=== PATIENT | female | born 1935 | race Caucasian/White ===

== ENCOUNTER 2018-09-26 12:51 | Inpatient (IN) | payer OTHER ==
[2018-09-26] MEDS ORDERED: FENTANYL CITR 100 MCG/2 ML ONE (13:39)
[2018-09-26 13:57] LABS: Absolute Lymphocytes (CBC) 1.1 K/uL (0.7-4.9); Absolute Monocytes 0.8 K/uL (0.1-1.3); Absolute Neutrophil 6.9 K/uL (1.8-8.0); Basophils % 0.9 % (0-1.3); Hematocrit 35.3 % (36.0-45.0); Lymphocytes % 12.7 % (15.3-44.8); MCH 24.7 pg (27.0-35.0); MPV 9.2 fL (7.6-11.3); Monocytes % 8.6 % (3.3-12.3); RBC Red Blood Cell Count 4.64 M/uL (3.86-4.86)
[2018-09-26 14:00] LABS: Protime INR 1.03
[2018-09-26 14:11] LABS: Albumin 3.4 g/dL (3.4-5.0); Bilirubin Direct 0.1 mg/dL (0-0.2); Bilirubin Total 0.4 mg/dL (0.2-1.0); Potassium 4.2 mmol/L (3.5-5.1); Protein, Total 6.9 g/dL (6.4-8.2)
[2018-09-26 14:12] LABS: Troponin (Emerg Dept Use Only) 3.89 ng/mL (0.0-0.045)
--- NOTE | 2018-09-26 14:50 | ER ---
Nurse's Notes [facility] Name: Norma Best Age: 83 yrs Sex: Female : 1935 Arrival Date: 09/26/2018 Time: 13:00 Bed 25 Private MD: Diagnosis: Non-ST elevation (NSTEMI) myocardial infarction Presentation: 09/26 13:06 Presenting complaint: Patient states: She started having tightness in her chest and aj1 shortness of breath this morning at 0615, the pain wasn't getting any better so she called EMS at noon. Albuterol and atrovent neb given by EMS, 324 mg ASA given by EMS. Breath sounds with crackles to bilateral bases. Reports improvement in SOB with rest and elevating her head. Transition of care: patient was not received from another setting of care. Onset of symptoms was September 26, 2018 at 06:15. Risk Assessment: Do you want to hurt yourself or someone else? Patient reports no desire to harm self or others. Initial Sepsis Screen: Does the patient meet any 2 criteria? RR > 20 per min. HR > 90 bpm. Yes Does the patient have a suspected source of infection? No. Patient's initial sepsis screen is negative. Care prior to arrival: None. 13:06 Method Of Arrival: EMS: [facility] aj 13:06 Acuity: ROCCO 3 aj1 Triage Assessment: 13:11 General: Appears in no apparent distress. uncomfortable, Behavior is calm, cooperative, aj1 appropriate for age. Pain: Complains of pain in diaphragm, right breast and left breast. Historical: - Allergies: 13:11 IV contrast; aj1 - Home Meds: 15:43 amlodipine 10 mg tab [Active]; metoptolol succinate ER 50 mg daily [Active]; iw allopurinol 300 mg Oral tab 1 tab once daily [Active]; clopidogrel 75 mg Oral tab 1 tab once daily [Active]; venlafaxine 75 mg Oral tr24 1 tab once daily [Active]; Omeprazole Oral [Active]; - PMHx: 13:11 CVA; Gout; Hypertension; Myocardial infarction; cardiac stent x2; aj1 - Immunization history:: Flu vaccine is not up to date. - Social history:: Smoking status: Patient/guardian denies using tobacco. - Ebola Screening: : Patient denies travel to an Ebola-affected area in the 21 days before illness onset. Screenin:13 Abuse screen: Denies threats or abuse. Denies injuries from another. Nutritional aj1 screening: No deficits noted. Tuberculosis screening: No symptoms or risk factors identified. 17:29 Fall Risk No fall in past 12 months (0 pts). Secondary diagnosis (15 points) impaired aj1 mobility, IV access (20 points). Ambulatory Aid- None/Bed Rest/Nurse Assist (0 pts). Gait- Weak (10 pts.). Mental Status- Overestimates/Forgets Limitations (15 pts.). Total Med[place] Fall Scale indicates High Risk Score (45 or more points). Family Present and informed to notify staff if the need to leave the bedside As available patient and family educated on Fall Prevention Program and Strategies. Assessment: 13:13 General: Appears in no apparent distress. uncomfortable, Behavior is calm, cooperative, aj1 appropriate for age. General: Reports fatigue for 0-12 hours. Pain: Complains of pain in left breast and right breast and diaphragm Pain does not radiate. Pain currently is 2 out of 10 on a pain scale. Quality of pain is described as heavy, pressure, Pain began 0615 this morning Is continuous, Alleviated by rest, sitting upright Aggravated by increased activity. Neuro: Level of Consciousness is awake, alert, obeys commands, Oriented to person, place, time, situation, Speech is normal, Facial symmetry appears normal. Cardiovascular: Reports chest pain, shortness of breath, Heart tones S1 S2 present Patient's skin is warm and dry. Rhythm is atrial fibrillation. Respiratory: Reports shortness of breath on exertion Airway is patent Respiratory effort is even, unlabored, Respiratory pattern is regular, symmetrical, Breath sounds with crackles bilaterally. the patient has mild shortness of breath. GI: No signs and/or symptoms were reported involving the gastrointestinal system. : No signs and/or symptoms were reported regarding the genitourinary system. EENT: No signs and/or symptoms were reported regarding the EENT system. Derm: No signs and/or symptoms reported regarding the dermatologic system. Skin is pink, warm \T\ dry. normal. Musculoskeletal: No signs and/or symptoms reported regarding the musculoskeletal system. Circulation, motion, and sensation intact. 14:15 Reassessment: Patient appears in no apparent distress at this time. No changes from aj1 previously documented assessment. Patient and/or family updated on plan of care and expected duration. Pain level reassessed. Patient is alert, oriented x 3, equal unlabored respirations, skin warm/dry/pink. Vital Signs: 13:11 BP 124 / 75; Pulse 92; Resp 24; Temp 97.8(O); Pulse Ox 88% on R/A; Weight 90.72 kg (R); aj1 Height 5 ft. 0 in. (152.40 cm) (R); Pain 2/10; 13:12 Resp 18; Pulse Ox 95% on 3 lpm NC; aj1 14:15 BP 127 / 61; Pulse 91; Resp 18; Pulse Ox 94% on 3 lpm NC; aj1 15:15 BP 108 / 66; Pulse 94; Resp 18; Pulse Ox 95% on 3 lpm NC; aj1 17:07 BP 115 / 75; Pulse 75; Resp 23; Pulse Ox 94% on 3 lpm NC; aj1 13:11 Body Mass Index 39.06 (90.72 kg, 152.40 cm) [facility] ED Course: 13:00 Patient arrived in ED. bd 13:01 Darien Patricio MD is Attending Physician. gs 13:06 Argenis Cullen, KAYLIE is Primary Nurse. aj1 13:10 Triage completed. aj1 13:12 Arm band placed on Patient placed in an exam room. aj1 13:13 Patient has correct armband on for positive identification. Bed in low position. Call aj1 light in reach. Side rails up X 1. lunchroom monitor on. Pulse ox on. NIBP on. 13:13 No provider procedures requiring assistance completed. Maintain EMS IV. Dressing aj1 intact. Good blood return noted. Site clean \T\ dry. Gauge \T\ site: 20g left AC. 13:29 Troponin (emerg Dept Use Only) Sent. ds4 13:29 PT-INR Sent. ds4 13:29 NT PRO-BNP Sent. ds4 13:29 Magnesium Sent. ds4 13:29 LFT's Sent. ds4 13:29 CBC with Diff Sent. ds4 13:29 Basic Metabolic Panel Sent. ds4 13:50 Oxygen administration via nasal cannula \T\ 4L/min Response to oxygen therapy: symptoms ds4 improved. 13:52 Basic Metabolic Panel Sent. ds4 13:52 Troponin (emerg Dept Use Only) Sent. ds4 13:52 CBC with Diff Sent. ds4 13:52 LFT's Sent. ds4 13:52 PT-INR Sent. ds4 13:52 NT PRO-BNP Sent. ds4 13:52 Magnesium Sent. ds4 14:49 Aida Chapa MD is Hospitalizing Provider. gs 14:56 XRAY Chest (1 view) In Process Unspecified. EDMS 17:07 Report given to KAYLIE Zamorano on 4th floor. aj1 17:30 Patient admitted, IV remains in place. aj1 Administered Medications: 13:42 Drug: fentaNYL (PF) 25 mcg Route: IVP; Site: left antecubital; iw 14:51 Follow up: Response: No adverse reaction aj1 14:51 Drug: Lovenox 1 mg/kg Route: Sub-Q; Site: right lower abdomen; aj1 17:08 Follow up: Response: No adverse reaction aj1 15:05 Drug: Metoprolol 25 mg Route: PO; aj1 17:08 Follow up: Response: No adverse reaction aj1 Outcome: 14:50 Decision to Hospitalize by Provider. gs 17:32 Admitted to Tele accompanied by tech, via wheelchair, with oxygen, with chart. aj1 17:32 Condition: stable 17:32 Discharge instructions given to patient, family, Instructed on the need for admit, Demonstrated understanding of instructions. 17:34 Patient left the ED. aj1 Signatures: Dispatcher [employer] EDMS Mariaelena Wong Angela, RN RN aj1 Charu Nicholson RN RN iw Ned Chávez ds4 Darien Patricio MD MD Corrections: (The following items were deleted from the chart) 13:11 13:06 Presenting complaint: Patient states: She started having tightness in her chest aj1 and shortness of breath this morning at 0615, the pain wasn't getting any better so she called EMS at noon. Albuterol and atrovent neb given by EMS, 324 mg ASA given by EMS. Breath sounds with crackles to bilateral bases. Patient denies any cardiac history. Reports improvement in SOB with rest and elevating her head aj1
--- NOTE | 2018-09-26 14:50 | EDPHYS ---
Physician Documentation [facility] Name: Norma Best Age: 83 yrs Sex: Female : 1935 Arrival Date: 09/26/2018 Time: 13:00 Bed 25 Private MD: ED Physician Darien Patricio HPI: 09/26 14:43 This 83 yrs old Female presents to ER via EMS with unknown complaint. gs 14:43 The patient or guardian reports chest pain that is located primarily in the anterior gs chest wall. Onset: today, at 08:00. Associated signs and symptoms: Pertinent positives: shortness of breath. The chest pain is described as a heaviness. Duration: The patient or guardian reports a single episode, that is still ongoing. Modifying factors: The symptoms are alleviated by nothing. the symptoms are aggravated by nothing. Severity of pain: At its worst the pain was severe in the emergency department the pain has improved moderately. The patient has experienced similar episodes in the past, several times. Historical: - Allergies: 13:11 IV contrast; aj1 - Home Meds: 15:43 amlodipine 10 mg tab [Active]; metoptolol succinate ER 50 mg daily [Active]; iw allopurinol 300 mg Oral tab 1 tab once daily [Active]; clopidogrel 75 mg Oral tab 1 tab once daily [Active]; venlafaxine 75 mg Oral tr24 1 tab once daily [Active]; Omeprazole Oral [Active]; - PMHx: 13:11 CVA; Gout; Hypertension; Myocardial infarction; cardiac stent x2; aj1 - Immunization history:: Flu vaccine is not up to date. - Social history:: Smoking status: Patient/guardian denies using tobacco. - Ebola Screening: : Patient denies travel to an Ebola-affected area in the 21 days before illness onset. ROS: 14:43 All other systems are negative. gs Exam: 14:43 Head/Face: Normocephalic, atraumatic. Eyes: Pupils equal round and reactive to light, gs extra-ocular motions intact. Lids and lashes normal. Conjunctiva and sclera are non-icteric and not injected. Cornea within normal limits. Periorbital areas with no swelling, redness, or edema. ENT: Nares patent. No nasal discharge, no septal abnormalities noted. Tympanic membranes are normal and external auditory canals are clear. Oropharynx with no redness, swelling, or masses, exudates, or evidence of obstruction, uvula midline. Mucous membranes moist. Neck: Trachea midline, no thyromegaly or masses palpated, and no cervical lymphadenopathy. Supple, full range of motion without nuchal rigidity, or vertebral point tenderness. No Meningismus. Chest/axilla: Normal chest wall appearance and motion. Nontender with no deformity. No lesions are appreciated. 14:43 Respiratory: Lungs have equal breath sounds bilaterally, clear to auscultation and percussion. No rales, rhonchi or wheezes noted. No increased work of breathing, no retractions or nasal flaring. Abdomen/GI: Soft, non-tender, with normal bowel sounds. No distension or tympany. No guarding or rebound. No evidence of tenderness throughout. Back: No spinal tenderness. No costovertebral tenderness. Full range of motion. Skin: Warm, dry with normal turgor. Normal color with no rashes, no lesions, and no evidence of cellulitis. MS/ Extremity: Pulses equal, no cyanosis. Neurovascular intact. Full, normal range of motion. Neuro: Awake and alert, GCS 15, oriented to person, place, time, and situation. Cranial nerves II-XII grossly intact. Motor strength 5/5 in all extremities. Sensory grossly intact. Cerebellar exam normal. Normal gait. 14:43 Constitutional: The patient appears alert, awake. 14:43 Cardiovascular: Rate: normal, Rhythm: irregularly irregular, Pulses: no pulse deficits are appreciated, Heart sounds: normal. 14:43 ECG was reviewed by the Attending Physician. Vital Signs: 13:11 BP 124 / 75; Pulse 92; Resp 24; Temp 97.8(O); Pulse Ox 88% on R/A; Weight 90.72 kg (R); aj1 Height 5 ft. 0 in. (152.40 cm) (R); Pain 2/10; 13:12 Resp 18; Pulse Ox 95% on 3 lpm NC; aj1 14:15 BP 127 / 61; Pulse 91; Resp 18; Pulse Ox 94% on 3 lpm NC; aj1 15:15 BP 108 / 66; Pulse 94; Resp 18; Pulse Ox 95% on 3 lpm NC; aj1 17:07 BP 115 / 75; Pulse 75; Resp 23; Pulse Ox 94% on 3 lpm NC; aj1 13:11 Body Mass Index 39.06 (90.72 kg, 152.40 cm) aj1 MDM: 13:22 Patient medically screened. 14:43 Differential diagnosis: abnormal EKG, acute myocardial infarction, coronary artery gs disease congestive heart failure. Data reviewed: vital signs, nurses notes. 14:43 Counseling: I had a detailed discussion with the patient and/or guardian regarding: the gs historical points, exam findings, and any diagnostic results supporting the discharge/admit diagnosis, the need for further work-up and treatment in the hospital. Response to treatment: the patient's symptoms have resolved after treatment, the patient is not short of breath, the patient's pain is gone. Physician consultation: Alberto Hagan MD and will see patient in inpatient room. 09/26 13:12 Order name: Basic Metabolic Panel; Complete Time: 14:34 09/26 13:12 Order name: CBC with Diff; Complete Time: 14:34 09/26 13:12 Order name: LFT's; Complete Time: 14:34 09/26 13:12 Order name: Magnesium; Complete Time: 14:34 09/26 13:12 Order name: NT PRO-BNP; Complete Time: 14:34 09/26 13:12 Order name: PT-INR; Complete Time: 14:34 09/26 13:12 Order name: Troponin (emerg Dept Use Only); Complete Time: 14:34 09/26 13:12 Order name: XRAY Chest (1 view); Complete Time: 15:13 09/26 13:12 Order name: EKG; Complete Time: 13:12 09/26 13:12 Order name: Cardiac monitoring; Complete Time: 13:16 09/26 13:12 Order name: EKG - Nurse/Tech; Complete Time: 13:16 09/26 13:12 Order name: IV Saline Lock; Complete Time: 13:16 09/26 13:12 Order name: Labs collected and sent; Complete Time: 13:29 09/26 13:12 Order name: O2 Per Protocol; Complete Time: 13:16 09/26 13:12 Order name: O2 Sat Monitoring; Complete Time: 13:16 gs EC:43 Rate is 95 beats/min. Rhythm is irregularly irregular. QRS interval is prolonged. T gs waves are Flattened. Clinical impression: Abnormal EKG without significant change and Cardiac ischemia. Changes noted from previous ECG on December 23, 2016. Interpreted by me. Administered Medications: 13:42 Drug: fentaNYL (PF) 25 mcg Route: IVP; Site: left antecubital; 14:51 Follow up: Response: No adverse reaction aj1 14:51 Drug: Lovenox 1 mg/kg Route: Sub-Q; Site: right lower abdomen; aj1 17:08 Follow up: Response: No adverse reaction aj1 15:05 Drug: Metoprolol 25 mg Route: PO; aj1 17:08 Follow up: Response: No adverse reaction aj1 Disposition: 14:43 Critical Care:. gs Disposition: 09/26/18 14:50 Hospitalization ordered by Aida Chapa for Inpatient Admission. Preliminary diagnosis is Non-ST elevation (NSTEMI) myocardial infarction. - Bed requested for Telemetry/MedSurg (Inpatient). - Status is Inpatient Admission. aj1 - Condition is Stable. - Problem is new. - Symptoms have improved. UTI on Admission? No Critical care time excluding procedures: 14:43 Critical care time: Bedside Care: 10 minutes, Consultation: 10 minutes, Family gs Intervention: 10 minutes. Total time: 30 minutes Signatures: Dispatcher [employer] EDMS Mariaelena Wong Angela, RN RN aj1 Charu Nicholson RN RN Darien Patricio MD MD Corrections: (The following items were deleted from the chart) 16:47 14:50 Hospitalization Ordered by Aida Chapa MD for Inpatient Admission. Preliminary bd diagnosis is Non-ST elevation (NSTEMI) myocardial infarction. Bed requested for Telemetry/MedSurg (Inpatient). Status is Inpatient Admission. Condition is Stable. Problem is new. Symptoms have improved. UTI on Admission? No. gs 17:34 16:47 09/26/2018 14:50 Hospitalization Ordered by Aida Chapa MD for Inpatient aj1 Admission. Preliminary diagnosis is Non-ST elevation (NSTEMI) myocardial infarction. Bed requested for Telemetry/MedSurg (Inpatient). Status is Inpatient Admission. Condition is Stable. Problem is new. Symptoms have improved. UTI on Admission? No. bd
[2018-09-26] MEDS ORDERED: ENOXAPARIN 100 MG/ML SYR SQ ONE (14:54)
--- NOTE | 2018-09-26 15:04 | RAD REPORT ---
EXAM DESCRIPTION: RAD - Chest Single View - 09/26/2018 2:55 pm CLINICAL HISTORY: CHEST PAIN Chest pain. COMPARISON: Chest Single View dated 12/23/2016; Chest Single View dated 06/04/2016; CHEST SINGLE VIEW d ated 10/24/2014; CHEST SINGLE VIEW dated 10/23/2014 FINDINGS: Portable technique limits examination quality. Mild pulmonary edema suspected. The heart is mildly enlarged in size. No displaced fractures. IMPRESSION: Mild CHF versus volume overload.
[2018-09-26] MEDS ORDERED: METOPROLOL TAR 25 MG TAB ONE (15:08)
[2018-09-26] MEDS ORDERED: ALBUTEROL 2.5 MG/3 ML NEB SOL NEB PRN (17:23)
[2018-09-26] MEDS ORDERED: ONDANSETRON 4 MG/2 ML VIAL IV PRN (17:23)
[2018-09-26] MEDS ORDERED: ACETAMINOPHEN 500 MG TAB PO PRN (17:23)
--- NOTE | 2018-09-26 18:05 | EKG ---
Test Date: 2018-09-26 Test Time: 12:57:15 Windlasser: NICCI MEASUREMENT RESULTS: Intervals: Rate: 95 MN: QRSD: 126 QT: 406 QTc: 510 [place]: P: MN: QRS: 58 T: 263 INTERPRETIVE STATEMENTS: Atrial fibrillation Nonspecific intraventricular block T wave abnormality, consider inferolateral ischemia or digitalis effect Abnormal ECG Compared to ECG 12/23/2016 12:52:12 T-wave abnormality now present Possible ischemia now present Sinus rhythm no longer present Electronically Signed On 09-26-18 18:03:04 SKI PATROL DIRECTOR by Alberto Hagan
--- NOTE | 2018-09-26 18:09 | P.HP ---
Certification for Inpatient Patient admitted to: Inpatient With expected LOS: >2 Midnights Practitioner: I am a practitioner with admitting privileges, knowledge of patient current condition, hospital course, and medical plan of care. Services: Services provided to patient in accordance with Admission requirements found in Title 42 Section 412.3 of the Code of Federal Regulations Patient History Date of Service: 09/26/18 Primary Care Provider: Dr. 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 Per patient, constant chest pain started when she was at rest this morning around 8:00 a.m.. It was located across her chest in a band, it was a pressure like pain and she states it was like somebody was tearing at her chest. She denies any radiation of the pain, there are no alleviating or exacerbating factors. She took her regular medications after her pain started which included a beta-annemarie, aspirin 81 mg and Plavix 75 mg. She had elevated troponins at 3.89 with elevated BNP and EKG changes that were more so than the last EKG. His at the time of my exam, she was alert oriented x3, and this was still complaining of chest pain though had improved. Denied any shortness of breath, dizziness, vision changes, headache, nausea or vomiting. She also denied any recent fevers, chills or any abdominal pain. Allergies iodine Allergy (Verified 10/23/14 20:30) Nausea/Vomiting IV CONTRAST Allergy (Uncoded 12/23/16 22:18) Unknown IV Dye Allergy (Uncoded 10/29/14 11:58) Unknown No Known Allerg Allergy (Uncoded 06/04/16 16:55) Unknown Home Medications: Allopurinol [Zyloprim*] 1 tab PO DAILY 10/24/14 Clopidogrel Bisulfate [Plavix*] 1 tab PO DAILY 10/24/14 Venlafaxine HCl *Xr* [Effexor XR] 1 cap PO DAILY 10/24/14 Aspirin [Aspirin EC 81 MG] 81 mg PO DAILY #30 tablet. 10/25/14 Esomeprazole Mag Trihydrate [Nexium] 40 mg PO DAILY 12/24/16 Amlodipine [Norvasc*] 1 tab PO DAILY 09/26/18 Metoprolol Tartrate [Lopressor] 1 tab PO DAILY 09/26/18 - Past Medical/Surgical History Has patient received pneumonia vaccine in the past: Yes Diabetic: No -: C diff -: htn -: hyperlipidemia -: chf -: MA -: CVA -: gout -: detatched retina 15 yrs ago -: Stents 2x 1984 -: Stroke 2013 -: Knee replacement 2009 -: Vericose vein sx 13 yrs ago -: chandra -: lap appy -: tonsillectomy - Family History Mother -: Heart disease, Diabetes Father -: Heart disease Notes: poor circulation RT smoking, Not DX diabetic - Social History Smoking Status: Never smoker Alcohol use: No CD- Drugs: No Caffeine use: Yes Place of Residence: Home Review of Systems General: Unremarkable Eyes: Unremarkable ENT: Unremarkable Respiratory: Unremarkable Cardiovascular: Chest Pain, As per HPI Gastrointestinal: Unremarkable Genitourinary: Unremarkable Musculoskeletal: Unremarkable Integumentary: Unremarkable Neurological: Unremarkable Lymphatics: Unremarkable Physical Examination - Vital Signs Temperature: 97.8 F Blood Pressure: 115/75 Pulse: 75 Respirations: 23 - Physical Exam General: Alert, In no apparent distress, Oriented x3 HEENT: Atraumatic, PERRLA, Mucous membr. moist/pink, EOMI, Sclerae nonicteric Neck: Supple, 2+ carotid pulse no bruit, No LAD, Without JVD or thyroid abnormality Respiratory: Clear to auscultation bilaterally, Normal air movement Cardiovascular: Normal S1 S2, Irregular heart rate/rhythm Gastrointestinal: Normal bowel sounds, No tenderness Musculoskeletal: No tenderness Integumentary: No rashes Neurological: Normal speech, Normal strength at 5/5 x4 extr, Normal tone, Normal affect - Studies Laboratory Data (last 24 hrs) 09/26/18 13:21: PT 12.1, INR 1.03 09/26/18 13:21: WBC 9.0, Hgb 11.5 L, Hct 35.3 L, Plt Count 290 09/26/18 13:21: Sodium 136, Potassium 4.2, BUN 18, Creatinine 1.10, Glucose 125 H, Magnesium 2.0, Total Bilirubin 0.4, AST 42 H, ALT 21, Alkaline Phosphatase 96 Assessment and Plan - Plan This is a 83-year-old female with: NSTEMI Patient with elevated troponins, chest pain and EKG changes (non ST elevation) vital signs stable Pain control with morphine p.r.n.. Nitro p.r.n. Oxygen as needed Continue aspirin and Plavix Continue metoprolol 50 mg daily, home dose start statin Cardiology consulted, likely with for heart catheterization tomorrow morning. History of coronary stents Continue medications of aspirin, Plavix, metoprolol. assessment consultant, heart catheterization tomorrow morning Hyperlipidemia Start statin, as patient does not seem to be on cholesterol medication at home Hypertension Restart metoprolol 50 mg daily. Hold amlodipine for now. May consider changing to JOLYNN-inhibitor due to her cardiac history. Blood pressure stable at this time, continue to monitor History of CVA, with residual right-sided weakness Stable. Gout Continue home medication of metoprolol Diet: NPO after midnight. Disposition: Admit to floor with tele. Pending heart catheterization tomorrow. - Advance Directives Does patient have a Living Will: Yes Does patient have a Durable POA for Healthcare: No Physician Review: Patient Assessed, Agree with Above Assessment and Plan Time Spent Managing Pts Care (In Minutes): 55
[2018-09-26] MEDS ORDERED: INFLUENZA VACCINE (for 3y+) 0.5 ML DOSE IMVAC ONE (20:00)
[2018-09-26] MEDS: MORPHINE 2 MG/ML SYR IV PRN ×2 (20:12→23:44)
[2018-09-26] MEDS ORDERED: predniSONE 20 MG TAB PO ONE (20:20)
[2018-09-27] MEDS ORDERED: NITROGLYCERIN 1 GM PKT TD ONE (00:20)
[2018-09-27] MEDS ORDERED: METOPROLOL TARTRATE 5 MG/5 ML INJ IV ONE (00:24)
[2018-09-27] MEDS ORDERED: METOPROLOL TARTRATE 5 MG/5 ML INJ IV STA (00:44)
[2018-09-27] MEDS ORDERED: FUROSEMIDE 20 MG/ 2ML VIAL IV ONE (03:02)
[2018-09-27 05:06] LABS: Absolute Lymphocytes (CBC) 0.6 K/uL (0.7-4.9); Absolute Monocytes 0.2 K/uL (0.1-1.3); Absolute Neutrophil 8.2 K/uL (1.8-8.0); Basophils % 0.3 % (0-1.3); Eosinophils % 0.1 % (0-4.4); Hematocrit 35.7 % (36.0-45.0); Lymphocytes % 6.3 % (15.3-44.8); MCH 24.8 pg (27.0-35.0); MCV 76.1 fL (80-100); MPV 8.7 fL (7.6-11.3); Monocytes % 1.8 % (3.3-12.3); RBC Red Blood Cell Count 4.69 M/uL (3.86-4.86)
[2018-09-27] MEDS ORDERED: NA CHLORIDE 0.9% 1,000 ML ONE (05:47)
[2018-09-27] MEDS ORDERED: predniSONE 20 MG TAB PO ONE ×2 (06:00→06:50)
[2018-09-27 06:06] LABS: Albumin 3.3 g/dL (3.4-5.0); Bilirubin Total 0.5 mg/dL (0.2-1.0); Potassium 4.5 mmol/L (3.5-5.1)
[2018-09-27 06:18] VITALS: BMI 37.8
[2018-09-27] MEDS ORDERED: PANTOPRAZOLE 40MG TABLET PO SCH (07:30)
--- NOTE | 2018-09-27 07:51 | P.PN ---
Subjective Date of Service: 09/27/18 Patient started having worsening chest pain and shortness of breath. She became hypoxic and tachypneic as well as tachycardic. Code uzma was called as patient's vital signs became unstable. nursing curb supervisor nurse were in the room. I came to assess the patient as well. Patient was short of breath and holding her chest. We went ahead and gave her nitro & morphine, along with Lopressor. Her symptoms improved. She was moved to the ICU to be monitored more carefully and troponins were performed. Review of Systems 10-point ROS is otherwise unremarkable Physical Examination - Vital Signs Temperature: 98.3 F Blood Pressure: 108/64 Pulse: 89 Respirations: 15 Pulse Ox (%): 95 - Physical Exam General: Alert, In no apparent distress, Oriented x3, Severe distress Respiratory: Clear to auscultation bilaterally, Normal air movement Cardiovascular: Regular rate/rhythm, Normal S1 S2 Gastrointestinal: Normal bowel sounds, Soft and benign, Non-distended, No tenderness - Studies Laboratory Data (last 24 hrs) 09/26/18 13:21: PT 12.1, INR 1.03 09/26/18 13:21: WBC 9.0, Hgb 11.5 L, Hct 35.3 L, Plt Count 290 09/26/18 13:21: Sodium 136, Potassium 4.2, BUN 18, Creatinine 1.10, Glucose 125 H, Magnesium 2.0, Total Bilirubin 0.4, AST 42 H, ALT 21, Alkaline Phosphatase 96 Medications List Reviewed: Yes Assessment & Plan - Problems (Diagnosis) (1) Dyspnea Status: Acute (2) HTN (hypertension) Onset Date: 09/27/18 Status: Acute (3) Hyperlipidemia Onset Date: 09/27/18 Status: Acute (4) NSTEMI (non-ST elevated myocardial infarction) Onset Date: 09/27/18 Status: Acute - Plan Plan: 1. Continue with cardiac medications & repeat EKG 2. Moved patient ICU 3. NPO for cardiac catheterization in the morning 4. Restrict fluid intake 5. Gentle diuresing with Lasix 20 mg IV push 6. Portable chest x-ray 7. Repeat cardiac troponins 8. GI DVT prophylaxis Plan to discharge in: Greater than 2 days - Advance Directives Does patient have a Living Will: Yes Does patient have a Durable POA for Healthcare: No - Code Status/Comfort Care Code Status Assessed: Yes Code Status: Full Code Physician Review: Patient Assessed, Agree with Above Assessment and Plan Critical Care: Yes Time Spent Managing PTS Care (In Minutes): 50
[2018-09-27] MEDS ORDERED: HEPA 1000U/500MLS 2,000 UNIT/1,000 ML BAG IV ONE (08:56)
[2018-09-27] MEDS ORDERED: VENLAFAXINE HCL XR 75 MG CAP PO SCH (09:00)
[2018-09-27] MEDS ORDERED: CLOPIDOGREL 75 MG TABLET PO SCH (09:00)
[2018-09-27] MEDS ORDERED: METOPROLOL TAR 50 MG TAB PO SCH (09:00)
[2018-09-27] MEDS ORDERED: ASPIRIN EC 81 MG TAB PO SCH (09:00)
[2018-09-27] MEDS ORDERED: HOME MED 1 EA UNK (Esomeprazole Mag Trihydrate [Nexium] 40 MG) PO SCH (09:00)
[2018-09-27] MEDS ORDERED: ALLOPURINOL 300 MG TAB PO SCH (09:00)
[2018-09-27] MEDS ORDERED: NA CHLORIDE 0.9% 500 ML ONE (09:07)
[2018-09-27] MEDS ORDERED: METHYLPREDNISOLONE 125 MG INJ ONE (09:20)
[2018-09-27] MEDS ORDERED: ONDANSETRON 4 MG/2 ML VIAL ONE (09:20)
[2018-09-27] MEDS ORDERED: MIDAZOLAM HCL 2 MG/2 ML INJ ONE ×2 (09:20→09:43)
[2018-09-27] MEDS ORDERED: FENTANYL CITR 100 MCG/2 ML ONE (09:21)
--- NOTE | 2018-09-27 09:26 | RAD REPORT ---
EXAM DESCRIPTION: Yvette Single View09/27/2018 8:20 am CLINICAL HISTORY: Chest pain COMPARISON: September 26 FINDINGS: The left base is mildly hazy. Right lung appears clear. Heart is normal size. Aorta is to rtuous/ectatic. IMPRESSION: Left base is mildly hazy which could indicate a small pleural effusion with atelectasis/ pneumonia.
[2018-09-27] MEDS ORDERED: LIDOCAINE 1% MPF 30 ML VIAL ONE (09:49)
--- NOTE | 2018-09-27 11:55 | CON ---
Date of Consultation: 09/26/2018 The patient was admitted on 09/26/[address] Chapa's service. I saw the patient on 09/26/2018. Reason For Consultation: Non-ST elevation myocardial infarction. History Of Present Illness: Ms. Best is an 83-year-old woman, has a history of hypertension, CVA, has had stent approximately 8 months ago in [place]. She has no residual from her stroke. Came in w ith few hours of chest pain, ST depression, elevated troponin at 3.89, BNP was 4557. Denied PND, ort hopnea, pedal edema. She denied palpitation or syncope, although her EKG when she came in was in atr ial fibrillation. Past Medical History: As stated above. Allergies: SHE IS ALLERGIC TO IODINE. Review of Systems: Negative. Social History: Negative. Family History: Noncontributory. Medications: At home include aspirin, Plavix, Norvasc, metoprolol, . Physical Examination: General: She was in mild distress from chest pain. O2 saturations were adequate. She was in atrial fibrillation at a rate of 80. HEENT: Negative. Neck: Supple with no bruit. Chest: Clear to auscultation and percussion. Cardiac: Exam revealed a regular rhythm and rate without murmurs, gallops, or rubs. Abdomen: Benign. Extremities: Revealed no clubbing, cyanosis, or edema. Diagnostic Data: As stated earlier and her creatinine is normal. Impression And Plan: 1.The patient with history of stent 8 months ago in [place], unknown location and ST depression on E KG could be related to atrial fibrillation with troponin positive, symptoms are suggestive. We will plan for a heart catheterization in the morning. The patient understands the risk and the benefit of the procedure and she agreed to proceed. She is allergic to iodine. She will receive 60 mg of pred nisone tonight, 60 mg of prednisone in the morning, and some Solu-Medrol during the procedure. 2.History of cerebrovascular accident that has resolved. 3.Hypertension. 4.Depression. NB/MODL Voice ID: [id number] Report ID: [id number]
[2018-09-27] MEDS ORDERED: ACETAMINOPHEN 325 MG TABLET PO PRN (12:00)
[2018-09-27] MEDS ORDERED: NA CHLORIDE 0.9% 1,000 ML IV SCH (12:00)
[2018-09-27] MEDS ORDERED: NITROGLYCERIN 0.4 MG/TAB SL PRN (12:00)
--- NOTE | 2018-09-27 12:44 | OP ---
Surgeon: Vignesh Bahena MD Procedures: Left heart catheterization, coronary left ventricular angiography. Findings: The patient has severe 3 vessel coronary heart disease with lesions at LAD, 2 branches of the obtuse marginal, and distal RCA. Ejection fractions in the 30s. There seems to be global hypoki nesis. It may be slightly worse in the inferior basal. Left ventricular end-diastolic pressure was in the 30s and the impression is the patient needs bypass surgery. Procedure In Detail: The patient was brought to the cardiac quality control lab technician in a fasting state sedated with Versed and fentanyl. The radial approach was used, but there was no apparent pathway for a catheter passed into the aorta from the arm. An angiogram revealed no connection. It could be there was a s mall connection, there does seem to be antegrade flow, but we could not find it, so we abandoned the radial approach and used the femoral approach. We used 4-Trinidadian catheters, 18-gauge needle, and aziza fied Seldinger technique, 4-Trinidadian sheath, JL4 for the left, 3DRC for the right, angled pigtail for t he left ventricle. The findings are summarized above. Our plan is to consult Dr. Selvin Guerrero to see if he would be willing to attempt coronary bypass s urgery or perhaps she should undergo a high risk staged angioplasty with Impella device as a backup. SALLY Voice ID: [id number] Report ID: [id number]
[2018-09-27 13:19] VITALS: O2SAT 92
--- NOTE | 2018-09-27 15:17 | P.PN ---
Subjective Date of Service: 09/27/18 Primary Care Provider: Dr. Reilly Chief Complaint: Chest pain Patient seen and examined at bedside in the ICU. Family at bedside. Case discussed with nursing staff and Dr. Bahena, cardiology. Caps patient in moderate distress secondary to pain. Overnight, patient started to have chest pain and shortness of breath, code uzma was called and she was transferred to ICU. She was given nitro paste and Lasix. Chest pain resolved about 10-15 min after. Review of Systems As noted Physical Examination - Vital Signs Temperature: 98.2 F Blood Pressure: 110/91 Pulse: 77 Respirations: 12 Pulse Ox (%): 88 - Physical Exam General: Alert, Moderate distress HEENT: Atraumatic, PERRLA, EOMI Neck: Supple, JVD not distended Respiratory: Clear to auscultation bilaterally, Normal air movement Cardiovascular: Normal S1 S2, Irregular heart rate/rhythm Gastrointestinal: Normal bowel sounds, No tenderness Musculoskeletal: No tenderness Integumentary: No rashes Neurological: Normal speech, Normal tone, Normal affect Assessment And Plan - Plan This is a 83-year-old female with: NSTEMI: She is status post heart catheterization, found to have extensive coronary disease. Impression is that she should have CABG. Transferred to [facility]. Patient with elevated troponins, chest pain and EKG changes (non ST elevation) vital signs stable Pain control with morphine p.r.n.. Nitro p.r.n. Oxygen as needed Continue aspirin and Plavix Continue metoprolol 50 mg daily, home dose start statin Cardiology consulted, recommendations appreciated. History of coronary stents Continue medications of aspirin, Plavix, metoprolol. Hyperlipidemia Start statin, as patient does not seem to be on cholesterol medication at home Hypertension Restart metoprolol 50 mg daily. Hold amlodipine for now. May consider changing to JOLYNN-inhibitor due to her cardiac history. Blood pressure stable at this time, continue to monitor History of CVA, with residual right-sided weakness Stable. Gout Continue home medication of metoprolol Diet: NPO after midnight. Disposition: Continue monitoring in ICU. She is pending transfer to [facility]. Process has been started. Physician Review: Patient Assessed, Agree with Above Assessment and Plan Critical Care: Yes Time Spent Managing PTS Care (In Minutes): 45
--- NOTE | 2018-09-27 15:36 | P.SSS ---
Patient History Date of Service: 09/27/18 Primary Care Provider: Dr. 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 Per patient, constant chest pain started when she was at rest this morning around 8:00 a.m.. It was located across her chest in a band, it was a pressure like pain and she states it was like somebody was tearing at her chest. She denies any radiation of the pain, there are no alleviating or exacerbating factors. She took her regular medications after her pain started which included a beta-annemarie, aspirin 81 mg and Plavix 75 mg. She had elevated troponins at 3.89 with elevated BNP and EKG changes that were more so than the last EKG. His at the time of my exam, she was alert oriented x3, and this was still complaining of chest pain though had improved. Denied any shortness of breath, dizziness, vision changes, headache, nausea or vomiting. She also denied any recent fevers, chills or any abdominal pain. Allergies iodine Allergy (Verified 10/23/14 20:30) Nausea/Vomiting IV CONTRAST Allergy (Uncoded 12/23/16 22:18) Unknown IV Dye Allergy (Uncoded 10/29/14 11:58) Unknown No Known Allerg Allergy (Uncoded 06/04/16 16:55) Unknown Home Medications: Allopurinol [Zyloprim*] 1 tab PO DAILY 10/24/14 Clopidogrel Bisulfate [Plavix*] 1 tab PO DAILY 10/24/14 Venlafaxine HCl *Xr* [Effexor XR] 1 cap PO DAILY 10/24/14 Aspirin [Aspirin EC 81 MG] 81 mg PO DAILY #30 tablet. 10/25/14 Esomeprazole Mag Trihydrate [Nexium] 40 mg PO DAILY 12/24/16 Amlodipine [Norvasc*] 1 tab PO DAILY 09/26/18 Metoprolol Tartrate [Lopressor] 1 tab PO DAILY 09/26/18 - Past Medical/Surgical History Has patient received pneumonia vaccine in the past: Yes Diabetic: No -: C diff -: htn -: hyperlipidemia -: chf -: [place] -: CVA -: gout -: detatched retina 15 yrs ago -: Stents 2x 1984 -: Stroke 2013 -: Knee replacement 2009 -: Vericose vein sx 13 yrs ago -: chandra -: lap appy -: tonsillectomy - Family History Mother -: Heart disease, Diabetes Father -: Heart disease Notes: poor circulation RT smoking, Not DX diabetic - Social History Smoking Status: Never smoker Alcohol use: No CD- Drugs: No Caffeine use: Yes Place of Residence: Home Review of Systems As noted Physical Examination - Vital Signs Temperature: 98.2 F Blood Pressure: 110/91 Pulse: 77 Respirations: 12 Pulse Ox (%): 88 - Physical Exam General: Alert, Moderate distress HEENT: Atraumatic, PERRLA, Mucous membr. moist/pink, EOMI, Sclerae nonicteric Neck: Supple, 2+ carotid pulse no bruit, No LAD, Without JVD or thyroid abnormality Respiratory: Other (On Venti mask) Cardiovascular: Normal S1 S2, Irregular heart rate/rhythm Gastrointestinal: Normal bowel sounds, No tenderness Musculoskeletal: No tenderness Integumentary: No rashes Neurological: Normal speech Treatment Summary: Patient was admitted to the floor, had acute chest pain and shortness of breath and insulin, was given nitro paste, Lasix and was transferred to the ICU. She underwent a left heart catheterization in the morning, found to have extensive coronary disease can't was deemed that she would need to be transferred for higher care and possible CABG. Patient transferred to [facility] in a stable condition - Disposition Disposition: TRANSFER TO [facility] Condition: SERIOUS Physician Review: Patient Assessed, Agree with Above Assessment and Plan Time Spent Managing Pts Care (In Minutes): 55
[2018-09-27 22:00] VITALS: BP 108/64; TEMP 98.3
--- NOTE | 2018-09-29 07:11 | EKG ---
Test Date: 2018-09-27 Test Time: 00:14:13 Agency Sales Representative: RT MEASUREMENT RESULTS: Intervals: Rate: 102 OH: 186 QRSD: 130 QT: 402 QTc: 523 [place]: P: 66 OH: 186 QRS: 58 T: 249 INTERPRETIVE STATEMENTS: Sinus tachycardia Nonspecific intraventricular block T wave abnormality, consider inferolateral ischemia Abnormal ECG Compared to ECG 09/26/2018 12:57:15 Atrial fibrillation no longer present T-wave abnormality still present Possible ischemia still present Electronically Signed On 09-29-18 07:07:28 CRAB FISHER by Alberto Hagan
== END 2018-09-27 15:00 | disposition short-term general hospital (02) | DRG 281 ==
LOC: ER 12:51 → ERHOLD 14:51 → 4TH 17:13 → 3RD-ICU 09-27 01:10
PROVIDERS: ADMIT Family Medicine; ATTEND Family Medicine
PROC: 4A023N7 Measurement of Cardiac Sampling and Pressure, Left Heart, Percutaneous Approach (ICD-10-PCS; principal; 2018-09-27)
PROC: B211YZZ Fluoroscopy of Multiple Coronary Arteries using Other Contrast (ICD-10-PCS; 2018-09-27)
PROC: B215YZZ Fluoroscopy of Left Heart using Other Contrast (ICD-10-PCS; 2018-09-27)
DX: I21.4 Non-ST elevation (NSTEMI) myocardial infarction (principal); I69.351 Hemiplegia and hemiparesis following cerebral infarction affecting right dominant side; I25.10 Atherosclerotic heart disease of native coronary artery without angina pectoris; Z95.5 Presence of coronary angioplasty implant and graft; E78.5 Hyperlipidemia, unspecified; M10.9 Gout, unspecified; R09.02 Hypoxemia; R00.0 Tachycardia, unspecified; R06.82 Tachypnea, not elsewhere classified; Z91.048 Other nonmedicinal substance allergy status; F32.9 Major depressive disorder, single episode, unspecified; I11.0 Hypertensive heart disease with heart failure; I50.9 Heart failure, unspecified
CPT/HCPCS: 36415; 71045; 80048; 80053; 80076; 83735; 83880; 84484; 85025; 85610; 93005; 93458; 94660; 94760; 96372; 96374; 99285; C1760; C1893; J1650; J1940; J2250; J2270; J2405; J2930; J3010; J7030; J7512